=== PATIENT | female | born 1985 | race Caucasian/White ===

== ENCOUNTER 2018-04-21 01:32 | Inpatient (IN) | payer MEDICAID ==
--- NOTE | 2018-04-21 07:55 | PCM.PNLD ---
<Kim Ernandez - Last Filed: 04/21/18 07:53> Labor Progress Note - VS & Meds Vital Signs: Last Vital Signs Temp Pulse 95 04/21/18 05:56 Resp 18 04/21/18 05:56 BP 122/81 04/21/18 05:56 Pulse Ox - Uterine Contractions Uterine Monitoring Mode: External [place] Contraction Frequency (min): 3-6 Contraction Duration (sec): 60-120 Contraction Intensity: Moderate Uterine Resting Tone: Soft - Monitoring Strip Review: Category I - Vaginal Exam Dilation (cm): 2 Effacement (Percent): 50 Station: -2 Cervical Position: Midposition Sterile Vaginal Exam Performed By: Mera Conner - Labor Progress (Free Text) Labor Progress: Patient is doing well. Not feeling much for contractions at this time. She was AROMd without difficulty and cervical exam is now 3/80/-2 with clear fluid. There was some bleeding noted. Patient can receive epidural if desired. <Yinka Norton - Last Filed: 04/21/18 09:48> Labor Progress Note - VS & Meds Vital Signs: Last Vital Signs Temp Pulse 77 04/21/18 08:00 Resp 15 04/21/18 08:00 BP 111/75 04/21/18 08:00 Pulse Ox 99 04/21/18 08:00 Active Medications: Current Medications Lactated Ringer's (Ringers, Lactated) 1,000 mls @ 100 mls/hr IV ASDIRECTED BENITO - Labor Progress (Free Text) Labor Progress: Saw the patient with the resident and agree.
[2018-04-21] MEDS: Lactated Ringers 1,000 ML IV SCH ×2 (08:00→14:05)
--- NOTE | 2018-04-21 09:41 | PCM.LDHP ---
<Kim Ernandez - Last Filed: 04/21/18 14:18> L&D History of Present Illness - General Date of Service: 04/21/18 Admit Problem/Dx: Patient Status Order with Admit Dx/Problem 04/21/18 07:30 Patient Status [ADT] Routine Admission Diagnosis/Problem Admission Diagnosis/Problem and not yet delivered 04/21/18 09:28 Helen is a 33 yo F at 38w 6 d who presents to the hospital today for labor. The patient reports she had onset of contractions this AM and they have been becoming significantly stronger. She denies any vaginal bleeding or leakage of fluids. The patient has had a routine with no complications. Her previous deliveries were vaginal deliveries with no complications as well. Normal 28 w labs and she is GBS negative. She does not have any medical history. 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 ARTISAN History: Reports: , Other (See Below) Other OB/BYN History: bartholumu cyst removed has 3 children Musculoskeletal History: Reports: Fracture Neurological History: Reports: Migraines, Other (See Below) Other Neuro History: c/o dizziness with this has hx of migraines when not Endocrine/Metabolic History: Reports: Hypothyroidism Hematologic History: Reports: Anemia, Other (See Below) Other Hematologic History: anemia during is taking iron - Infectious Disease History Infectious Disease History: Reports: Chicken Pox - Past Surgical History Endocrine Surgical History: Reports: None Social & Family History - Family History Family Medical History: Noncontributory HEENT: Reports: None Cardiac: Reports: None GI: Reports: None : Reports: None OBGYN: Reports: None Musculoskeletal: Reports: None Neurological: Reports: None Endocrine/Metabolic: Reports: None Hematologic: Reports: None - Tobacco Use Smoking Status *Q: Never Smoker Second Hand Smoke Exposure: No - Caffeine Use Caffeine Use: Reports: Coffee - Recreational Drug Use Recreational Drug Use: No H&P Review of Systems - Review of Systems: General: Reports: No Symptoms HEENT: Reports: No Symptoms Pulmonary: Reports: No Symptoms Cardiovascular: Reports: No Symptoms Gastrointestinal: Reports: No Symptoms Genitourinary: Reports: No Symptoms Musculoskeletal: Reports: No Symptoms Skin: Reports: No Symptoms Psychiatric: Reports: No Symptoms L&D Exam - Exam Exam: See Below - Vital Signs Vital Signs: Last Vital Signs Temp Pulse 95 04/21/18 05:56 Resp 18 04/21/18 05:56 BP 122/81 04/21/18 05:56 Pulse Ox Weight: 182 lb - OB Specific Contraction Duration (sec): 60-120 Contraction Frequency (min): 3-6 Contraction Intensity: Moderate - Steiner Score Steiner Score Cervix Position: Midposition Steiner Score Consistency: Soft Steiner Score Dilation: 1-2 cm Steiner Score 's Station: -2 - Exam General: Alert Lungs: Clear to Auscultation, Normal Respiratory Effort Cardiovascular: Regular Rate, Regular Rhythm GI/Abdominal Exam: Normal Bowel Sounds, Soft, Non-Tender Genitourinary: Normal external exam Back Exam: Normal Inspection, CVA Tenderness (L) Extremities: Normal Inspection Skin: Warm Neurological: Cranial Nerves Intact - Problem List (1) Vaginal delivery SNOMED Code(s): 835751760 ICD Code: O80 - ENCOUNTER FOR FULL-TERM UNCOMPLICATED DELIVERY Status: Acute Current Visit: Yes (2) Intrauterine SNOMED Code(s): 26026313 ICD Code: Z33.1 - STATE, INCIDENTAL Status: Acute Current Visit : No Problem List Initiated/Reviewed/Updated: Yes Orders Last 24hrs: Active Orders 24 hr Category Date Time Status Patient Status [ADT] Routine ADT 04/21/18 07:30 Active Lactated Ringers [Ringers, Lactated] 1,000 ml Med 04/21/18 08:00 Active IV ASDIRECTED Resuscitation Status Routine Resus Stat 04/21/18 01:43 Ordered Medication Orders Lactated Ringer's (Ringers, Lactated) 1,000 mls @ 100 mls/hr IV ASDIRECTED BENITO Assessment/Plan Comment:: Continue routine L/D cares. Epidural if the patient desires. Expect normal spontaneous vaginal delivery. <[place],Yinka - Last Filed: 04/22/18 08:45> L&D History of Present Illness - General Admit Problem/Dx: Patient Status Order with Admit Dx/Problem 04/21/18 07:30 Patient Status [ADT] Routine 04/21/18 16:40 Patient Status [ADT] Routine Admission Diagnosis/Problem Admission Diagnosis/Problem Vaginal delivery H&P Review of Systems - Review of Systems: Review Of Systems: See Below L&D Exam - Exam Exam: See Below - Vital Signs Vital Signs: Last Vital Signs Temp 98.3 F 04/21/18 18:15 Pulse 84 04/21/18 21:19 Resp 15 04/21/18 18:15 BP 128/80 04/21/18 21:19 Pulse Ox 100 04/21/18 18:15 - Patient Data Lab Results Last 24 hrs: Laboratory Results - last 24 hr 04/22/18 Range/Units 05:50 WBC 8.1 (4.5-12.0) X10-3/uL RBC 3.29 (3.23-5.20) x10(6)uL Hgb 8.6 L (11.5-15.5) g/dL Hct 26.9 L (30.0-51.3) % MCV 81.5 (80-96) fL MCH 26.2 L (27.7-33.6) pg MCHC 32.1 L (32.2-35.4) g/dL RDW 13.9 (11.5-15.5) % Plt Count 131 (125-369) X10(3)uL MPV 9.2 (7.4-10.4) fL Neut % (Auto) 73.4 (46-82) % Lymph % (Auto) 18.6 (13-37) % [place] % (Auto) 7.0 (4-12) % Eos % (Auto) 1 (1.0-5.0) % Baso % (Auto) 1 (0-2) % Neut # (Auto) 6.0 (1.6-8.3) # Lymph # (Auto) 1.5 (0.6-5.0) # [place] # (Auto) 0.6 (0.0-1.3) # Eos # (Auto) 0.0 (0.0-0.8) # Baso # (Auto) 0.0 (0.0-0.2) # Result Diagrams: 04/22/18 05:50 Problem List Initiated/Reviewed/Updated: Yes Orders Last 24hrs: Active Orders 24 hr Category Date Time Status Patient Status [ADT] Routine ADT 04/21/18 16:40 Active Communication Order [RC] ASDIRECTED Care 04/21/18 12:37 Active Communication Order [RC] ASDIRECTED Care 04/21/18 14:38 Active Communication Order [RC] ASDIRECTED Care 04/21/18 14:38 Active Communication Order [RC] ASDIRECTED Care 04/21/18 14:38 Active Insert Urinary Catheter [OM.PC] Q24H Care 04/21/18 15:00 Ordered May Shower [RC] ASDIRECTED Care 04/21/18 16:42 Active Notify Provider [RC] PRN Care 04/21/18 12:37 Active Oxygen Therapy [RC] PRN Care 04/21/18 14:38 Active Pasero Opioid Induced Sedation [RC] Q1HR Care 04/21/18 14:38 Active Up ad Eugenie [RC] ASDIRECTED Care 04/21/18 16:42 Active Vital Signs [RC] PFP Care 04/21/18 16:40 Active Vital Signs [RC] PFP Care 04/21/18 16:42 Active Regular Diet [DIET] Diet 04/21/18 Dinner Active Docusate Sodium [Colace] Med 04/21/18 16:42 Active 100 mg PO BID PRN Famotidine [Pepcid] Med 04/21/18 16:42 Active 20 mg PO BID PRN Ibuprofen [Motrin] Med 04/21/18 16:42 Active 600 mg PO Q6H PRN Lactated Ringers [Ringers, Lactated] 1,000 ml Med 04/21/18 08:00 Active IV ASDIRECTED Nalbuphine [Nubain] Med 04/21/18 14:37 Active 10 mg IVPUSH Q1H PRN Naloxone [Narcan] Med 04/21/18 14:37 Active 0.1 mg IVPUSH ONETIME PRN Ondansetron [Zofran ODT] Med 04/21/18 17:15 Active 4 mg PO Q6H PRN Ondansetron [Zofran] Med 04/21/18 14:37 Active 4 mg IVPUSH Q6H PRN Oxytocin/Normal Saline [Pitocin in NS 20 Units/1,000 ML Med 04/21/18 12:45 Active ] 20 unit in 1,000 ml IV TITRATE Vit/FA/Fe Fumarate [-U] Med 04/22/18 09:00 Active 1 each PO DAILY diphenhydrAMINE [Benadryl] Med 04/21/18 14:37 Active 25 mg IVPUSH ONETIME PRN Assess Lochia [WOMSER] Per Unit Routine Ot 04/21/18 16:42 Ordered Assess Uterine Involution [WOMSER] Per Unit Routine Ot 04/21/18 16:42 Ordered Breast Pump [WOMSER] Per Unit Routine Ot 04/21/18 16:42 Ordered Do Not Administer Anticoagulant Meds [AST] Per Unit Ot 04/21/18 14:38 Ordered Routine Do Not Administer IV Narcs or Sedatives [AST] Per Unit Ot 04/21/18 14:38 Ordered Routine Ice Therapy [OM.PC] Per Unit Routine Ot 04/21/18 16:42 Ordered Perineal Care [OM.PC] Per Unit Routine Oth 04/21/18 16:42 Ordered Sitz Bath [OM.PC] Per Unit Routine Ot 04/21/18 16:42 Ordered Medication Orders Diphenhydramine HCl (Benadryl) 25 mg IVPUSH ONETIME PRN PRN Reason: Pruritus Docusate Sodium (Colace) 100 mg PO BID PRN PRN Reason: Constipation Famotidine (Pepcid) 20 mg PO BID PRN PRN Reason: Heartburn Lactated Ringer's (Ringers, Lactated) 1,000 mls @ 100 mls/hr IV ASDIRECTED BENITO Last Infusion: 04/21/18 13:35 Dose: 999 mls/hr Admin: 04/21/18 08:00 Dose: 100 mls/hr Oxytocin/Sodium Chloride (Pitocin In Ns 20 Units/1,000 Ml) 20 unit in 1,000 mls @ 6 mls/hr IV TITRATE BENITO; Protocol Last Titration: 04/21/18 13:30 Dose: 0 munits/min, 0 mls/hr Admin: 04/21/18 12:57 Dose: 2 munits/min, 6 mls/hr Ibuprofen (Motrin) 600 mg PO Q6H PRN PRN Reason: Pain Last Admin: 04/22/18 05:59 Dose: 600 mg Admin: 04/21/18 21:17 Dose: 600 mg Nalbuphine HCl (Nubain) 10 mg IVPUSH Q1H PRN PRN Reason: Pruritus Naloxone HCl (Narcan) 0.1 mg IVPUSH ONETIME PRN PRN Reason: Oversedation Ondansetron HCl (Zofran) 4 mg IVPUSH Q6H PRN PRN Reason: Nausea/Vomiting Ondansetron HCl (Zofran Odt) 4 mg PO Q6H PRN PRN Reason: Nausea/Vomiting Last Admin: 04/21/18 17:28 Dose: 4 mg Multivit/Folic Acid/Iron (-U) 1 each PO DAILY BENITO Assessment/Plan Comment:: I have seen this patient with the resident.
--- NOTE | 2018-04-21 12:40 | PCM.PNLD ---
<JayyjacquiKim orourke - Last Filed: 04/21/18 12:38> Labor Progress Note - VS & Meds Vital Signs: Last Vital Signs Temp Pulse 77 04/21/18 08:00 Resp 15 04/21/18 08:00 BP 111/75 04/21/18 08:00 Pulse Ox 99 04/21/18 08:00 Active Medications: Current Medications Lactated Ringer's (Ringers, Lactated) 1,000 mls @ 100 mls/hr IV ASDIRECTED BENITO - Uterine Contractions Uterine Monitoring Mode: External [place] Contraction Frequency (min): 3-4 Contraction Duration (sec): 60-120 Contraction Intensity: Moderate Uterine Resting Tone: Soft - Monitoring Strip Review: Category I - Vaginal Exam Dilation (cm): 5 Effacement (Percent): 80 Station: -1 Cervical Position: Posterior Sterile Vaginal Exam Performed By: Massiel Almanza - Labor Progress (Free Text) Labor Progress: Patient is becoming a little more uncomfortable. She would like to have intrathecal for pain control. Cervix is 5/90/-1. She is junior every 3 minutes but we discussed starting the patient on pitocin and she is agreeable. Category 1 strip. <AllenMayaYinka - Last Filed: 04/22/18 08:49> Labor Progress Note - VS & Meds Vital Signs: Last Vital Signs Temp 98.3 F 04/21/18 18:15 Pulse 84 04/21/18 21:19 Resp 15 04/21/18 18:15 BP 128/80 04/21/18 21:19 Pulse Ox 100 04/21/18 18:15 Active Medications: Current Medications Diphenhydramine HCl (Benadryl) 25 mg IVPUSH ONETIME PRN PRN Reason: Pruritus Docusate Sodium (Colace) 100 mg PO BID PRN PRN Reason: Constipation Famotidine (Pepcid) 20 mg PO BID PRN PRN Reason: Heartburn Lactated Ringer's (Ringers, Lactated) 1,000 mls @ 100 mls/hr IV ASDIRECTED BENITO Last Infusion: 04/21/18 13:35 Dose: 999 mls/hr Oxytocin/Sodium Chloride (Pitocin In Ns 20 Units/1,000 Ml) 20 unit in 1,000 mls @ 6 mls/hr IV TITRATE BENITO; Protocol Last Titration: 04/21/18 13:30 Dose: 0 munits/min, 0 mls/hr Ibuprofen (Motrin) 600 mg PO Q6H PRN PRN Reason: Pain Last Admin: 04/22/18 05:59 Dose: 600 mg Nalbuphine HCl (Nubain) 10 mg IVPUSH Q1H PRN PRN Reason: Pruritus Naloxone HCl (Narcan) 0.1 mg IVPUSH ONETIME PRN PRN Reason: Oversedation Ondansetron HCl (Zofran) 4 mg IVPUSH Q6H PRN PRN Reason: Nausea/Vomiting Ondansetron HCl (Zofran Odt) 4 mg PO Q6H PRN PRN Reason: Nausea/Vomiting Last Admin: 04/21/18 17:28 Dose: 4 mg Multivit/Folic Acid/Iron (-U) 1 each PO DAILY BENITO Discontinued Medications Hydroxyzine HCl (Vistaril) Confirm Administered Dose 50 mg .ROUTE .STK-MED ONE Stop: 04/21/18 18:00 Last Admin: 04/21/18 18:17 Dose: Not Given Hydroxyzine HCl (Vistaril) 50 mg IM ONETIME ONE Stop: 04/21/18 17:56 Last Admin: 04/21/18 18:03 Dose: 50 mg Naltrexone HCl (Naltrexone) 25 mg PO ONETIME ONE Stop: 04/21/18 17:36 Last Admin: 04/21/18 18:00 Dose: 25 mg Ondansetron HCl (Zofran Odt) Confirm Administered Dose 4 mg .ROUTE .STK-MED ONE Stop: 04/21/18 17:28 Last Admin: 04/21/18 17:54 Dose: Not Given Oxytocin (Pitocin) 10 unit IM ONETIME ONE Stop: 04/21/18 16:01 Last Admin: 04/21/18 16:08 Dose: 10 unit - Labor Progress (Free Text) Labor Progress: I have seen this patient with the resident and agree.
[2018-04-21] MEDS ORDERED: fentaNYL 100 MCG/2 ML SDV IV ONE (14:00)
[2018-04-21] MEDS ORDERED: Morphine PF 10 MG/10 ML SDV ONE (14:00)
--- NOTE | 2018-04-21 14:18 | PCM.PNLD ---
<OmaKim - Last Filed: 04/21/18 14:13> Labor Progress Note - VS & Meds Vital Signs: Last Vital Signs Temp Pulse 77 04/21/18 08:00 Resp 15 04/21/18 08:00 BP 111/75 04/21/18 08:00 Pulse Ox 99 04/21/18 08:00 Active Medications: Current Medications Lactated Ringer's (Ringers, Lactated) 1,000 mls @ 100 mls/hr IV ASDIRECTED BENITO Last Infusion: 04/21/18 13:35 Dose: 999 mls/hr Oxytocin/Sodium Chloride (Pitocin In Ns 20 Units/1,000 Ml) 20 unit in 1,000 mls @ 6 mls/hr IV TITRATE BENITO; Protocol Last Titration: 04/21/18 13:30 Dose: 0 munits/min, 0 mls/hr - Uterine Contractions Uterine Monitoring Mode: External [place] Contraction Frequency (min): 3-4 Contraction Duration (sec): 60-120 Contraction Intensity: Moderate Uterine Resting Tone: Soft - Monitoring Strip Review: Category I - Vaginal Exam Dilation (cm): 5 Effacement (Percent): 80 Station: -1 Cervical Position: Anterior Sterile Vaginal Exam Performed By: Massiel Almanza - Labor Progress (Free Text) Labor Progress: Category 1. Her pain is well controlled with intrathecal. Cervix is 8/100/-1. Expecting normal spontaneous vaginal delivery. <Yinka Norton - Last Filed: 04/22/18 08:49> Labor Progress Note - VS & Meds Vital Signs: Last Vital Signs Temp 98.3 F 04/21/18 18:15 Pulse 84 04/21/18 21:19 Resp 15 04/21/18 18:15 BP 128/80 04/21/18 21:19 Pulse Ox 100 04/21/18 18:15 Active Medications: Current Medications Diphenhydramine HCl (Benadryl) 25 mg IVPUSH ONETIME PRN PRN Reason: Pruritus Docusate Sodium (Colace) 100 mg PO BID PRN PRN Reason: Constipation Famotidine (Pepcid) 20 mg PO BID PRN PRN Reason: Heartburn Lactated Ringer's (Ringers, Lactated) 1,000 mls @ 100 mls/hr IV ASDIRECTED BENITO Last Infusion: 04/21/18 13:35 Dose: 999 mls/hr Oxytocin/Sodium Chloride (Pitocin In Ns 20 Units/1,000 Ml) 20 unit in 1,000 mls @ 6 mls/hr IV TITRATE BENITO; Protocol Last Titration: 04/21/18 13:30 Dose: 0 munits/min, 0 mls/hr Ibuprofen (Motrin) 600 mg PO Q6H PRN PRN Reason: Pain Last Admin: 04/22/18 05:59 Dose: 600 mg Nalbuphine HCl (Nubain) 10 mg IVPUSH Q1H PRN PRN Reason: Pruritus Naloxone HCl (Narcan) 0.1 mg IVPUSH ONETIME PRN PRN Reason: Oversedation Ondansetron HCl (Zofran) 4 mg IVPUSH Q6H PRN PRN Reason: Nausea/Vomiting Ondansetron HCl (Zofran Odt) 4 mg PO Q6H PRN PRN Reason: Nausea/Vomiting Last Admin: 04/21/18 17:28 Dose: 4 mg Multivit/Folic Acid/Iron (-U) 1 each PO DAILY BENITO Discontinued Medications Hydroxyzine HCl (Vistaril) Confirm Administered Dose 50 mg .ROUTE .STK-MED ONE Stop: 04/21/18 18:00 Last Admin: 04/21/18 18:17 Dose: Not Given Hydroxyzine HCl (Vistaril) 50 mg IM ONETIME ONE Stop: 04/21/18 17:56 Last Admin: 04/21/18 18:03 Dose: 50 mg Naltrexone HCl (Naltrexone) 25 mg PO ONETIME ONE Stop: 04/21/18 17:36 Last Admin: 04/21/18 18:00 Dose: 25 mg Ondansetron HCl (Zofran Odt) Confirm Administered Dose 4 mg .ROUTE .STK-MED ONE Stop: 04/21/18 17:28 Last Admin: 04/21/18 17:54 Dose: Not Given Oxytocin (Pitocin) 10 unit IM ONETIME ONE Stop: 04/21/18 16:01 Last Admin: 04/21/18 16:08 Dose: 10 unit - Labor Progress (Free Text) Labor Progress: I've seen this patient with the resident and agree.
[2018-04-21] MEDS ORDERED: Ondansetron 4 MG/2 ML SDV IVPUSH PRN (14:37)
[2018-04-21] MEDS ORDERED: Nalbuphine 10 MG/1 ML Vial IVPUSH PRN (14:37)
[2018-04-21] MEDS ORDERED: diphenhydrAMINE 50 MG/ML SDV IVPUSH PRN (14:37)
[2018-04-21] MEDS ORDERED: Naloxone 0.4 MG/ML SDV IVPUSH PRN (14:37)
[2018-04-21] MEDS ORDERED: Oxytocin 10 Units/1 ML SDV IM ONE (16:00)
--- NOTE | 2018-04-21 16:38 | PCM.DEL ---
<Kim Ernandez - Last Filed: 04/21/18 16:33> L & D Note - General Info Date of Service: 04/21/18 - Delivery Note Labor: Spontaneous Delivery Outcome: Livebirth Delivery Method: Spontaneous Vaginal Delivery-Single Delivery Mode: Spontaneous Presentation: Left Occiput Posterior (LOP) Anesthesia Type: Intrathecal Anesthetic: Lidocaine (Xylocaine) 1% Plain Local Anesthetic Volume: 5cc Amniotic Fluid Description: Clear Episiotomy Type: None Laceration: 2nd Degree, Vaginal Suture size: 4-0 Placenta: Intact, Spontaneous Cord: 3 Vessels Estimated Blood Loss: 500 Resuscitation Needed: No [place]: Suctioned, Bulb Syringe Score 1 min: 8 Score 5 min: 9 Delivery Comments (Free Text/Narrative):: Normal spontaneous vaginal delivery at 38 w 6 day. Baby position was left occiput posterior. Spontaneous delivery of intact placenta. 2nd degree midline vaginal tear was repaired in the usual fashion with local anesthetic and no complications. Estimated blood loss was 500mL. Rectum intact. - General Info Date of Service: 04/21/18 Admission Dx/Problem (Free Text): Patient Status Order with Admit Dx/Problem 04/21/18 07:30 Patient Status [ADT] Routine Admission Diagnosis/Problem Admission Diagnosis/Problem and not yet delivered 04/21/18 09:28 Helen is a 33 yo F at 38w 6 d who presents to the hospital today for labor. The patient reports she had onset of contractions this AM and they have been becoming significantly stronger. She denies any vaginal bleeding or leakage of fluids. The patient has had a routine with no complications. Her previous deliveries were vaginal deliveries with no complications as well. Normal 28 w labs and she is GBS negative. She does not have any medical history. 04/21/18 14:18 Functional Status: Reports: Pain Controlled - Patient Data Vitals - Most Recent: Last Vital Signs Temp Pulse 77 04/21/18 08:00 Resp 15 04/21/18 08:00 BP 111/75 04/21/18 08:00 Pulse Ox 99 04/21/18 08:00 Weight - Most Recent: 182 lb I&O - Last 24 Hours: Intake & Output 04/21/18 04/21/18 04/21/18 06:59 14:59 22:59 Intake Total 300 Output Total 200 Balance 100 Med Orders - Current: Current Medications Diphenhydramine HCl (Benadryl) 25 mg IVPUSH ONETIME PRN PRN Reason: Pruritus Lactated Ringer's (Ringers, Lactated) 1,000 mls @ 100 mls/hr IV ASDIRECTED BENITO Last Infusion: 04/21/18 13:35 Dose: 999 mls/hr Oxytocin/Sodium Chloride (Pitocin In Ns 20 Units/1,000 Ml) 20 unit in 1,000 mls @ 6 mls/hr IV TITRATE BENITO; Protocol Last Titration: 04/21/18 13:30 Dose: 0 munits/min, 0 mls/hr Nalbuphine HCl (Nubain) 10 mg IVPUSH Q1H PRN PRN Reason: Pruritus Naloxone HCl (Narcan) 0.1 mg IVPUSH ONETIME PRN PRN Reason: Oversedation Ondansetron HCl (Zofran) 4 mg IVPUSH Q6H PRN PRN Reason: Nausea/Vomiting - Problem List & Annotations (2) Vaginal delivery SNOMED Code(s): 659262975 Code(s): O80 - ENCOUNTER FOR FULL-TERM UNCOMPLICATED DELIVERY Status: Acute Current Visit: Yes (4) Intrauterine SNOMED Code(s): 75549650 Code(s): Z33.1 - STATE, INCIDENTAL Status: Acute Current Visit: No - Problem List Review Problem List Initiated/Reviewed/Updated: Yes - Plan Plan:: Routine post cares. Patient will have pain control with Ibuprofen every 6 hours with Tylenol for breakthrough pain. Up and ad oni. Patient is planning to breastfeed. Ice for bottom. <Yinka Norton - Last Filed: 04/22/18 08:50> - Patient Data Vitals - Most Recent: Last Vital Signs Temp 98.3 F 04/21/18 18:15 Pulse 84 04/21/18 21:19 Resp 15 04/21/18 18:15 BP 128/80 04/21/18 21:19 Pulse Ox 100 04/21/18 18:15 I&O - Last 24 Hours: Intake & Output 04/21/18 04/22/18 04/22/18 22:59 06:59 14:59 Output Total 700 Balance -700 Lab Results Last 24 Hours: Laboratory Results - last 24 hr 02/05/19 Range/Units 05:50 WBC 8.1 (4.5-12.0) X10-3/uL RBC 3.29 (3.23-5.20) x10(6)uL Hgb 8.6 L (11.5-15.5) g/dL Hct 26.9 L (30.0-51.3) % MCV 81.5 (80-96) fL MCH 26.2 L (27.7-33.6) pg MCHC 32.1 L (32.2-35.4) g/dL RDW 13.9 (11.5-15.5) % Plt Count 131 (125-369) X10(3)uL MPV 9.2 (7.4-10.4) fL Neut % (Auto) 73.4 (46-82) % Lymph % (Auto) 18.6 (13-37) % [place] % (Auto) 7.0 (4-12) % Eos % (Auto) 1 (1.0-5.0) % Baso % (Auto) 1 (0-2) % Neut # (Auto) 6.0 (1.6-8.3) # Lymph # (Auto) 1.5 (0.6-5.0) # [place] # (Auto) 0.6 (0.0-1.3) # Eos # (Auto) 0.0 (0.0-0.8) # Baso # (Auto) 0.0 (0.0-0.2) # Med Orders - Current: Current Medications Diphenhydramine HCl (Benadryl) 25 mg IVPUSH ONETIME PRN PRN Reason: Pruritus Docusate Sodium (Colace) 100 mg PO BID PRN PRN Reason: Constipation Famotidine (Pepcid) 20 mg PO BID PRN PRN Reason: Heartburn Lactated Ringer's (Ringers, Lactated) 1,000 mls @ 100 mls/hr IV ASDIRECTED BENITO Last Infusion: 04/21/18 13:35 Dose: 999 mls/hr Oxytocin/Sodium Chloride (Pitocin In Ns 20 Units/1,000 Ml) 20 unit in 1,000 mls @ 6 mls/hr IV TITRATE BENITO; Protocol Last Titration: 04/21/18 13:30 Dose: 0 munits/min, 0 mls/hr Ibuprofen (Motrin) 600 mg PO Q6H PRN PRN Reason: Pain Last Admin: 04/22/18 05:59 Dose: 600 mg Nalbuphine HCl (Nubain) 10 mg IVPUSH Q1H PRN PRN Reason: Pruritus Naloxone HCl (Narcan) 0.1 mg IVPUSH ONETIME PRN PRN Reason: Oversedation Ondansetron HCl (Zofran) 4 mg IVPUSH Q6H PRN PRN Reason: Nausea/Vomiting Ondansetron HCl (Zofran Odt) 4 mg PO Q6H PRN PRN Reason: Nausea/Vomiting Last Admin: 04/21/18 17:28 Dose: 4 mg Multivit/Folic Acid/Iron (-U) 1 each PO DAILY BENITO Discontinued Medications Hydroxyzine HCl (Vistaril) Confirm Administered Dose 50 mg .ROUTE .STK-MED ONE Stop: 04/21/18 18:00 Last Admin: 04/21/18 18:17 Dose: Not Given Hydroxyzine HCl (Vistaril) 50 mg IM ONETIME ONE Stop: 04/21/18 17:56 Last Admin: 04/21/18 18:03 Dose: 50 mg Naltrexone HCl (Naltrexone) 25 mg PO ONETIME ONE Stop: 04/21/18 17:36 Last Admin: 04/21/18 18:00 Dose: 25 mg Ondansetron HCl (Zofran Odt) Confirm Administered Dose 4 mg .ROUTE .STK-MED ONE Stop: 04/21/18 17:28 Last Admin: 04/21/18 17:54 Dose: Not Given Oxytocin (Pitocin) 10 unit IM ONETIME ONE Stop: 04/21/18 16:01 Last Admin: 04/21/18 16:08 Dose: 10 unit - Problem List & Annotations (1) Vaginal delivery SNOMED Code(s): 999139160 Code(s): O80 - ENCOUNTER FOR FULL-TERM UNCOMPLICATED DELIVERY Status: Acute Current Visit: Yes - Problem List Review Problem List Initiated/Reviewed/Updated: Yes - My Orders Last 24 Hours: My Active Orders 04/21/18 08:00 Lactated Ringers [Ringers, Lactated] 1,000 ml IV ASDIRECTED 04/21/18 12:37 Communication Order [RC] ASDIRECTED Notify Provider [RC] PRN 04/21/18 12:45 Oxytocin/Normal Saline [Pitocin in NS 20 Units/1,000 ML] 20 unit in 1,000 ml IV TITRATE 04/21/18 15:00 Insert Urinary Catheter [OM.PC] Q24H 04/21/18 17:15 Ondansetron [Zofran ODT] 4 mg PO Q6H PRN - Plan Plan:: I have seen this patient with the resident and agree.
[2018-04-21] MEDS ORDERED: Famotidine 20 MG Tab PO PRN (16:42)
[2018-04-21] MEDS ORDERED: Docusate Sodium 100 MG Cap PO PRN (16:42)
[2018-04-21] MEDS ORDERED: Ondansetron 4 MG Tab.DIS PO PRN (17:15)
[2018-04-21] MEDS ORDERED: Ondansetron 4 MG Tab.DIS ONE (17:27)
[2018-04-21] MEDS ORDERED: Naltrexone 50 MG Tab PO ONE (17:35)
[2018-04-21] MEDS ORDERED: hydrOXYzine HCl 50 MG/ML SDV IM ONE (17:55)
[2018-04-21] MEDS ORDERED: hydrOXYzine HCl 50 MG/ML SDV ONE (17:59)
[2018-04-21] MEDS: Ibuprofen 600 MG Tab PO PRN (21:17)
[2018-04-22] MEDS: Ibuprofen 600 MG Tab PO PRN ×2 (05:59→18:55)
--- NOTE | 2018-04-22 07:59 | PCM.PNPP ---
<Kim Ernandez - Last Filed: 04/22/18 07:54> - General Info Date of Service: 04/22/18 Subjective Update: Patient reports doing well this morning. Her pain is controlled with ibuprofen. Bleeding is slowing down. She has been up and out of bed without difficulty. She was having some dizziness last night but this has resolved this AM. Bonding with baby very well. No symptoms of depression or anxiety. Functional Status: Reports: Pain Controlled - Review of Systems General: Reports: No Symptoms HEENT: Reports: No Symptoms Pulmonary: Reports: No Symptoms Cardiovascular: Reports: No Symptoms Gastrointestinal: Reports: No Symptoms Genitourinary: Reports: No Symptoms Musculoskeletal: Reports: No Symptoms Skin: Reports: No Symptoms Neurological: Reports: No Symptoms Psychiatric: Reports: No Symptoms - Patient Data Vital Signs - Most Recent: Last Vital Signs Temp 36.8 C 04/21/18 18:15 Pulse 84 04/21/18 21:19 Resp 15 04/21/18 18:15 BP 128/80 04/21/18 21:19 Pulse Ox 100 04/21/18 18:15 Weight - Most Recent: 182 lb I&O - Last 24 Hours: Intake & Output 04/21/18 04/22/18 04/22/18 22:59 06:59 14:59 Output Total 700 Balance -700 Lab Results - Last 24 Hours: Laboratory Results - last 24 hr 04/22/18 Range/Units 05:50 WBC 8.1 (4.5-12.0) X10-3/uL RBC 3.29 (3.23-5.20) x10(6)uL Hgb 8.6 L (11.5-15.5) g/dL Hct 26.9 L (30.0-51.3) % MCV 81.5 (80-96) fL MCH 26.2 L (27.7-33.6) pg MCHC 32.1 L (32.2-35.4) g/dL RDW 13.9 (11.5-15.5) % Plt Count 131 (125-369) X10(3)uL MPV 9.2 (7.4-10.4) fL Neut % (Auto) 73.4 (46-82) % Lymph % (Auto) 18.6 (13-37) % Riley % (Auto) 7.0 (4-12) % Eos % (Auto) 1 (1.0-5.0) % Baso % (Auto) 1 (0-2) % Neut # (Auto) 6.0 (1.6-8.3) # Lymph # (Auto) 1.5 (0.6-5.0) # Riley # (Auto) 0.6 (0.0-1.3) # Eos # (Auto) 0.0 (0.0-0.8) # Baso # (Auto) 0.0 (0.0-0.2) # Med Orders - Current: Current Medications Diphenhydramine HCl (Benadryl) 25 mg IVPUSH ONETIME PRN PRN Reason: Pruritus Docusate Sodium (Colace) 100 mg PO BID PRN PRN Reason: Constipation Famotidine (Pepcid) 20 mg PO BID PRN PRN Reason: Heartburn Lactated Ringer's (Ringers, Lactated) 1,000 mls @ 100 mls/hr IV ASDIRECTED BENITO Last Infusion: 04/21/18 13:35 Dose: 999 mls/hr Oxytocin/Sodium Chloride (Pitocin In Ns 20 Units/1,000 Ml) 20 unit in 1,000 mls @ 6 mls/hr IV TITRATE [facility]ENITO; Protocol Last Titration: 04/21/18 13:30 Dose: 0 munits/min, 0 mls/hr Ibuprofen (Motrin) 600 mg PO Q6H PRN PRN Reason: Pain Last Admin: 04/22/18 05:59 Dose: 600 mg Nalbuphine HCl (Nubain) 10 mg IVPUSH Q1H PRN PRN Reason: Pruritus Naloxone HCl (Narcan) 0.1 mg IVPUSH ONETIME PRN PRN Reason: Oversedation Ondansetron HCl (Zofran) 4 mg IVPUSH Q6H PRN PRN Reason: Nausea/Vomiting Ondansetron HCl (Zofran Odt) 4 mg PO Q6H PRN PRN Reason: Nausea/Vomiting Last Admin: 04/21/18 17:28 Dose: 4 mg Multivit/Folic Acid/Iron (-U) 1 each PO DAILY [facility]ENITO Discontinued Medications Hydroxyzine HCl (Vistaril) Confirm Administered Dose 50 mg .ROUTE .STK-MED ONE Stop: 04/21/18 18:00 Last Admin: 04/21/18 18:17 Dose: Not Given Hydroxyzine HCl (Vistaril) 50 mg IM ONETIME ONE Stop: 04/21/18 17:56 Last Admin: 04/21/18 18:03 Dose: 50 mg Naltrexone HCl (Naltrexone) 25 mg PO ONETIME ONE Stop: 04/21/18 17:36 Last Admin: 04/21/18 18:00 Dose: 25 mg Ondansetron HCl (Zofran Odt) Confirm Administered Dose 4 mg .ROUTE .STK-MED ONE Stop: 04/21/18 17:28 Last Admin: 04/21/18 17:54 Dose: Not Given Oxytocin (Pitocin) 10 unit IM ONETIME ONE Stop: 04/21/18 16:01 Last Admin: 04/21/18 16:08 Dose: 10 unit - Infant Interaction Disposition, : at Bedside Interaction: Holding Infant Infant Feeding: Breastfed Infant; Nursed Well, Continues to Breastfeed Support Person: - Recovery Exam Fundal Tone: Firm Fundal Level: At Umbilicus Fundal Placement: Midline Lochia Amount: Moderate Lochia Color: Rubra/Red Perineum Description: Intact, Minimal Bruising/Swelling, Edematous, Hematoma Episiotomy/Laceration: Approximated Bladder Status: Voiding - Exam General: Alert, No Acute Distress HEENT: Pupils Equal Lungs: Clear to Auscultation, Normal Respiratory Effort Cardiovascular: Regular Rate, Regular Rhythm GI/Abdominal Exam: Normal Bowel Sounds, Soft, Non-Tender Extremities: Normal Inspection, Normal Range of Motion, No Pedal Edema Wound/Incisions: Healing Well - Problem List & Annotations (1) care and examination immediately after delivery SNOMED Code(s): 33623956, 848748996 Code(s): Z39.0 - ENCNTR FOR CARE AND EXAM OF MOTHER IMMEDIATELY AFTER DEL Status: Acute Current Visit: Yes (2) Vaginal delivery SNOMED Code(s): 725202530 Code(s): O80 - ENCOUNTER FOR FULL-TERM UNCOMPLICATED DELIVERY Status: Acute Current Visit: Yes (3) Iron deficiency anemia SNOMED Code(s): 56647262 Code(s): D50.9 - IRON DEFICIENCY ANEMIA, UNSPECIFIED Status: Acute Current Visit: Yes - Problem List Review Problem List Initiated/Reviewed/Updated: Yes - My Orders Last 24 Hours: My Active Orders 04/21/18 16:40 Patient Status [ADT] Routine Vital Signs [RC] PFP 04/21/18 16:42 May Shower [RC] ASDIRECTED Up ad Oni [RC] ASDIRECTED Vital Signs [RC] PFP Docusate Sodium [Colace] 100 mg PO BID PRN Famotidine [Pepcid] 20 mg PO BID PRN Ibuprofen [Motrin] 600 mg PO Q6H PRN Assess Lochia [WOMSER] Per Unit Routine Assess Uterine Involution [WOMSER] Per Unit Routine Breast Pump [WOMSER] Per Unit Routine Ice Therapy [OM.PC] Per Unit Routine Perineal Care [OM.PC] Per Unit Routine Sitz Bath [OM.PC] Per Unit Routine 04/21/18 Dinner Regular Diet [DIET] 04/22/18 09:00 Vit/FA/Fe Fumarate [-U] 1 each PO DAILY - Plan Plan:: Continue routine post cares. Patient will have pain control with Ibuprofen every 6 hours with Tylenol for breakthrough pain. Up and ad oni. is going well is latching and feeding for 20 min intervals every 3-4 hours. We will start her on iron supplementation today. <Yinka Norton - Last Filed: 04/22/18 08:52> - Patient Data Vital Signs - Most Recent: Last Vital Signs Temp 98.3 F 04/21/18 18:15 Pulse 84 04/21/18 21:19 Resp 15 04/21/18 18:15 BP 128/80 04/21/18 21:19 Pulse Ox 100 04/21/18 18:15 I&O - Last 24 Hours: Intake & Output 04/21/18 04/22/18 04/22/18 22:59 06:59 14:59 Output Total 700 Balance -700 Lab Results - Last 24 Hours: Laboratory Results - last 24 hr 04/22/18 Range/Units 05:50 WBC 8.1 (4.5-12.0) X10-3/uL RBC 3.29 (3.23-5.20) x10(6)uL Hgb 8.6 L (11.5-15.5) g/dL Hct 26.9 L (30.0-51.3) % MCV 81.5 (80-96) fL MCH 26.2 L (27.7-33.6) pg MCHC 32.1 L (32.2-35.4) g/dL RDW 13.9 (11.5-15.5) % Plt Count 131 (125-369) X10(3)uL MPV 9.2 (7.4-10.4) fL Neut % (Auto) 73.4 (46-82) % Lymph % (Auto) 18.6 (13-37) % Riley % (Auto) 7.0 (4-12) % Eos % (Auto) 1 (1.0-5.0) % Baso % (Auto) 1 (0-2) % Neut # (Auto) 6.0 (1.6-8.3) # Lymph # (Auto) 1.5 (0.6-5.0) # Riley # (Auto) 0.6 (0.0-1.3) # Eos # (Auto) 0.0 (0.0-0.8) # Baso # (Auto) 0.0 (0.0-0.2) # Med Orders - Current: Current Medications Diphenhydramine HCl (Benadryl) 25 mg IVPUSH ONETIME PRN PRN Reason: Pruritus Docusate Sodium (Colace) 100 mg PO BID PRN PRN Reason: Constipation Famotidine (Pepcid) 20 mg PO BID PRN PRN Reason: Heartburn Lactated Ringer's (Ringers, Lactated) 1,000 mls @ 100 mls/hr IV ASDIRECTED [facility]ENITO Last Infusion: 04/21/18 13:35 Dose: 999 mls/hr Oxytocin/Sodium Chloride (Pitocin In Ns 20 Units/1,000 Ml) 20 unit in 1,000 mls @ 6 mls/hr IV TITRATE BENITO; Protocol Last Titration: 04/21/18 13:30 Dose: 0 munits/min, 0 mls/hr Ibuprofen (Motrin) 600 mg PO Q6H PRN PRN Reason: Pain Last Admin: 04/22/18 05:59 Dose: 600 mg Nalbuphine HCl (Nubain) 10 mg IVPUSH Q1H PRN PRN Reason: Pruritus Naloxone HCl (Narcan) 0.1 mg IVPUSH ONETIME PRN PRN Reason: Oversedation Ondansetron HCl (Zofran) 4 mg IVPUSH Q6H PRN PRN Reason: Nausea/Vomiting Ondansetron HCl (Zofran Odt) 4 mg PO Q6H PRN PRN Reason: Nausea/Vomiting Last Admin: 04/21/18 17:28 Dose: 4 mg Multivit/Folic Acid/Iron (-U) 1 each PO DAILY BENITO Discontinued Medications Hydroxyzine HCl (Vistaril) Confirm Administered Dose 50 mg .ROUTE .STK-MED ONE Stop: 04/21/18 18:00 Last Admin: 04/21/18 18:17 Dose: Not Given Hydroxyzine HCl (Vistaril) 50 mg IM ONETIME ONE Stop: 04/21/18 17:56 Last Admin: 04/21/18 18:03 Dose: 50 mg Naltrexone HCl (Naltrexone) 25 mg PO ONETIME ONE Stop: 04/21/18 17:36 Last Admin: 04/21/18 18:00 Dose: 25 mg Ondansetron HCl (Zofran Odt) Confirm Administered Dose 4 mg .ROUTE .STK-MED ONE Stop: 04/21/18 17:28 Last Admin: 04/21/18 17:54 Dose: Not Given Oxytocin (Pitocin) 10 unit IM ONETIME ONE Stop: 04/21/18 16:01 Last Admin: 04/21/18 16:08 Dose: 10 unit - Problem List & Annotations (1) Vaginal delivery SNOMED Code(s): 708974241 Code(s): O80 - ENCOUNTER FOR FULL-TERM UNCOMPLICATED DELIVERY Status: Acute Current Visit: Yes - Problem List Review Problem List Initiated/Reviewed/Updated: Yes - My Orders Last 24 Hours: My Active Orders 04/21/18 08:00 Lactated Ringers [Ringers, Lactated] 1,000 ml IV ASDIRECTED 04/21/18 12:37 Communication Order [RC] ASDIRECTED Notify Provider [RC] PRN 04/21/18 12:45 Oxytocin/Normal Saline [Pitocin in NS 20 Units/1,000 ML] 20 unit in 1,000 ml IV TITRATE 04/21/18 15:00 Insert Urinary Catheter [OM.PC] Q24H 04/21/18 17:15 Ondansetron [Zofran ODT] 4 mg PO Q6H PRN - Plan Plan:: I've seen this patient with the resident and agree.
[2018-04-22] MEDS: Prenatal Multivitamin with Calcium/Folic Acid/Fe Fumarate Cap PO SCH (10:00)
[2018-04-22] MEDS ORDERED: Measles, Mumps & Rubella Vaccine 0.5 ML SDV SUBCUT ONE (20:03)
--- NOTE | 2018-04-23 07:14 | PCM.PNPP ---
- General Info Date of Service: 04/23/18 Admission Dx/Problem (Free Text): Patient without complaints. Pain is under control and occasionally uses ibuprofen. Vaginal bleeding is much improved no leg swelling. No fevers or chills. - Patient Data Vital Signs - Most Recent: Last Vital Signs Temp 98.1 F 04/22/18 09:00 Pulse 70 04/22/18 09:00 Resp 17 04/22/18 09:00 BP 109/61 04/22/18 09:00 Pulse Ox 100 04/22/18 09:00 Weight - Most Recent: 182 lb Med Orders - Current: Current Medications Diphenhydramine HCl (Benadryl) 25 mg IVPUSH ONETIME PRN PRN Reason: Pruritus Docusate Sodium (Colace) 100 mg PO BID PRN PRN Reason: Constipation Famotidine (Pepcid) 20 mg PO BID PRN PRN Reason: Heartburn Lactated Ringer's (Ringers, Lactated) 1,000 mls @ 100 mls/hr IV ASDIRECTED [facility] Last Infusion: 04/21/18 14:30 Dose: 150 mls/hr Oxytocin/Sodium Chloride (Pitocin In Ns 20 Units/1,000 Ml) 20 unit in 1,000 mls @ 6 mls/hr IV TITRATE BENITO; Protocol Last Titration: 04/21/18 13:30 Dose: 0 munits/min, 0 mls/hr Ibuprofen (Motrin) 600 mg PO Q6H PRN PRN Reason: Pain Last Admin: 04/22/18 18:55 Dose: 600 mg Nalbuphine HCl (Nubain) 10 mg IVPUSH Q1H PRN PRN Reason: Pruritus Naloxone HCl (Narcan) 0.1 mg IVPUSH ONETIME PRN PRN Reason: Oversedation Ondansetron HCl (Zofran) 4 mg IVPUSH Q6H PRN PRN Reason: Nausea/Vomiting Ondansetron HCl (Zofran Odt) 4 mg PO Q6H PRN PRN Reason: Nausea/Vomiting Last Admin: 04/21/18 17:28 Dose: 4 mg Multivit/Folic Acid/Iron (-U) 1 each PO DAILY BENITO Last Admin: 04/22/18 10:00 Dose: 1 each Discontinued Medications Hydroxyzine HCl (Vistaril) Confirm Administered Dose 50 mg .ROUTE .STK-MED ONE Stop: 04/21/18 18:00 Last Admin: 04/21/18 18:17 Dose: Not Given Hydroxyzine HCl (Vistaril) 50 mg IM ONETIME ONE Stop: 04/21/18 17:56 Last Admin: 04/21/18 18:03 Dose: 50 mg Measles/Mumps/Rubella Vaccine Live (M-M-R Ii Vaccine) 0.5 ml SUBCUT .ONCE ONE Stop: 04/22/18 20:04 Naltrexone HCl (Naltrexone) 25 mg PO ONETIME ONE Stop: 04/21/18 17:36 Last Admin: 04/21/18 18:00 Dose: 25 mg Ondansetron HCl (Zofran Odt) Confirm Administered Dose 4 mg .ROUTE .STK-MED ONE Stop: 04/21/18 17:28 Last Admin: 04/21/18 17:54 Dose: Not Given Oxytocin (Pitocin) 10 unit IM ONETIME ONE Stop: 04/21/18 16:01 Last Admin: 04/21/18 16:08 Dose: 10 unit - Infant Interaction Infant Disposition, : [place] at Bedside Interaction: Holding Infant Feeding: Breastfed Infant; Nursed Well, Continues to Breastfeed Support Person: - Recovery Exam Fundal Tone: Firm Fundal Level: At Umbilicus Fundal Placement: Midline Lochia Amount: Moderate Lochia Color: Rubra/Red Perineum Description: Intact, Minimal Bruising/Swelling, Edematous, Hematoma Episiotomy/Laceration: Approximated Bladder Status: Voiding - Exam General: Alert, Oriented, Cooperative Lungs: Normal Respiratory Effort GI/Abdominal Exam: Other (Fundus is firm) Extremities: No Pedal Edema - Problem List & Annotations (1) Vaginal delivery SNOMED Code(s): 907306974 Code(s): O80 - ENCOUNTER FOR FULL-TERM UNCOMPLICATED DELIVERY Status: Acute Current Visit: Yes - Problem List Review Problem List Initiated/Reviewed/Updated: Yes - My Orders Last 24 Hours: My Active Orders 04/22/18 20:04 Vaccines to be Administered [RC] 1000 - Plan Plan:: DC to home on vitamins and iron once a day. Recheck in 6 weeks for check.
--- NOTE | 2018-04-23 07:19 | PCM.DCSUM1 ---
Discharge Summary - Hospital Course Free Text/Narrative:: Hospital course-after the delivery patient was placed on ibuprofen and/or Tylenol 3 for pain. Day #2 her hemoglobin is low but over 8. She was 10 starting . Start iron once a day. Pain was controlled and bleeding slowed down. And she did quite well. We'll discharge her home on vitamins and iron. She hadn't no palpitations during her stay. Normal care. Brief History: 33-year-old at 39 weeks comes in in labor. She was AROM with clear fluids and she is group B negative. Delivered a healthy baby boy in OP position. See delivery note Diagnosis: Stroke: No - Discharge Data Discharge Date: 04/23/18 Discharge Disposition: Home, Self-Care 01 Condition: Good - Discharge Diagnosis/Problem(s) (1) Vaginal delivery SNOMED Code(s): 278033172 ICD Code: O80 - ENCOUNTER FOR FULL-TERM UNCOMPLICATED DELIVERY Status: Acute Current Visit: Yes (2) Iron deficiency anemia SNOMED Code(s): 50322460 ICD Code: D50.9 - IRON DEFICIENCY ANEMIA, UNSPECIFIED Status: Acute Current Visit: Yes - Patient Instructions Diet: Regular Diet as Tolerated Activity: Apply Ice Driving: May Drive Today Showering/Bathing: July Shower Notify Provider of: Fever, Increased Pain, Drainage Other/Special Instructions: 1. Recheck for check with Dr. Norton in 6 weeks. 2. Ibuprofen [id number] when necessary for pain. - Discharge Plan Prescriptions/Med Rec: Ferrous Sulfate [Iron] 325 mg PO DAILY #30 tablet Home Medications: Home Meds Levothyroxine Sodium [Synthroid] 25 mcg PO ACBRK 02/17/14 [History] PNV95/Ferrous Fumarate/FA [ Tablet] 1 each PO DAILY 02/17/14 [History] Ferrous Sulfate [Iron] 325 mg PO DAILY #30 tablet 04/23/18 [Rx] Patient Handouts: , Baby Blues, Home Care Instructions for Mom, Care After Vaginal Delivery, Hand Washing - Discharge Summary/Plan Comment DC Time >30 min.: No - Patient Data Vitals - Most Recent: Last Vital Signs Temp 98.1 F 04/22/18 09:00 Pulse 70 04/22/18 09:00 Resp 17 04/22/18 09:00 BP 109/61 04/22/18 09:00 Pulse Ox 100 04/22/18 09:00 Weight - Most Recent: 182 lb Med Orders - Current: Current Medications Diphenhydramine HCl (Benadryl) 25 mg IVPUSH ONETIME PRN PRN Reason: Pruritus Docusate Sodium (Colace) 100 mg PO BID PRN PRN Reason: Constipation Famotidine (Pepcid) 20 mg PO BID PRN PRN Reason: Heartburn Lactated Ringer's (Ringers, Lactated) 1,000 mls @ 100 mls/hr IV ASDIRECTED BENITO Last Infusion: 04/21/18 14:30 Dose: 150 mls/hr Oxytocin/Sodium Chloride (Pitocin In Ns 20 Units/1,000 Ml) 20 unit in 1,000 mls @ 6 mls/hr IV TITRATE BENITO; Protocol Last Titration: 04/21/18 13:30 Dose: 0 munits/min, 0 mls/hr Ibuprofen (Motrin) 600 mg PO Q6H PRN PRN Reason: Pain Last Admin: 04/22/18 18:55 Dose: 600 mg Nalbuphine HCl (Nubain) 10 mg IVPUSH Q1H PRN PRN Reason: Pruritus Naloxone HCl (Narcan) 0.1 mg IVPUSH ONETIME PRN PRN Reason: Oversedation Ondansetron HCl (Zofran) 4 mg IVPUSH Q6H PRN PRN Reason: Nausea/Vomiting Ondansetron HCl (Zofran Odt) 4 mg PO Q6H PRN PRN Reason: Nausea/Vomiting Last Admin: 04/21/18 17:28 Dose: 4 mg Multivit/Folic Acid/Iron (-U) 1 each PO DAILY [facility] Last Admin: 04/22/18 10:00 Dose: 1 each Discontinued Medications Hydroxyzine HCl (Vistaril) Confirm Administered Dose 50 mg .ROUTE .STK-MED ONE Stop: 04/21/18 18:00 Last Admin: 04/21/18 18:17 Dose: Not Given Hydroxyzine HCl (Vistaril) 50 mg IM ONETIME ONE Stop: 04/21/18 17:56 Last Admin: 04/21/18 18:03 Dose: 50 mg Measles/Mumps/Rubella Vaccine Live (M-M-R Ii Vaccine) 0.5 ml SUBCUT .ONCE ONE Stop: 04/22/18 20:04 Naltrexone HCl (Naltrexone) 25 mg PO ONETIME ONE Stop: 04/21/18 17:36 Last Admin: 04/21/18 18:00 Dose: 25 mg Ondansetron HCl (Zofran Odt) Confirm Administered Dose 4 mg .ROUTE .STK-MED ONE Stop: 04/21/18 17:28 Last Admin: 04/21/18 17:54 Dose: Not Given Oxytocin (Pitocin) 10 unit IM ONETIME ONE Stop: 04/21/18 16:01 Last Admin: 04/21/18 16:08 Dose: 10 unit
[2018-04-23] MEDS: Prenatal Multivitamin with Calcium/Folic Acid/Fe Fumarate Cap PO SCH (08:50)
[2018-04-23] MEDS: Ibuprofen 600 MG Tab PO PRN (08:52)
[2018-04-23 09:39] VITALS: BP 115/74
== END 2018-04-23 12:50 | disposition home or self-care (01) | DRG 807 ==
LOC: FB.OBCHECK 01:32 → FB.OB 01:34 → FB.OBCHECK 07:30 → FB.OB 07:30
PROVIDERS: ADMIT Family Medicine; ATTEND Family Medicine
PROC: 10E0XZZ Delivery of Products of Conception, External Approach (ICD-10-PCS; principal; 2018-04-21)
PROC: 10907ZC Drainage of Amniotic Fluid, Therapeutic from Products of Conception, Via Natural or Artificial Opening (ICD-10-PCS; 2018-04-21)
PROC: 0HQ9XZZ Repair Perineum Skin, External Approach (ICD-10-PCS; 2018-04-21)
PROC: 00HU33Z Insertion of Infusion Device into Spinal Canal, Percutaneous Approach (ICD-10-PCS; 2018-04-21)
PROC: 3E0234Z Introduction of Serum, Toxoid and Vaccine into Muscle, Percutaneous Approach (ICD-10-PCS; 2018-04-23)
DX: O71.4 Obstetric high vaginal laceration alone (principal); Z37.0 Single live birth; O99.284 Endocrine, nutritional and metabolic diseases complicating childbirth; E03.9 Hypothyroidism, unspecified; O99.02 Anemia complicating childbirth; Z3A.38 38 weeks gestation of pregnancy; D50.9 Iron deficiency anemia, unspecified; Z23 Encounter for immunization
CPT/HCPCS: 36415; 51701; 59409; 85025; 90471; 90707; 96361; 96374; 96375; 99285; A9270-GY; J2270; J2590; J3010; J3410; J7120

== ENCOUNTER 2023-02-21 17:32 | Emergency (ER) | payer MEDICAID ==
[2023-02-21] MEDS ORDERED: Sodium Chloride 0.9% 10 ML Syringe FLUSH PRN (17:54)
[2023-02-21] MEDS ORDERED: Ondansetron 4 MG/2 ML SDV IVPUSH ONE (18:14)
[2023-02-21] MEDS ORDERED: Sodium Chloride 0.9% 1,000 ML IV SCH (18:15)
[2023-02-21 18:36] LABS: BASOPHILS PERCENT AUTO 0.3 % (0.2-1.5); EOSINOPHILS ABSOLUTE AUTO 0.1 x10-3/uL (0.0-0.8); EOSINOPHILS PERCENT AUTO 1.3 % (0.6-8.1); HEMATOCRIT 29.8 % (34.2-48.2); HEMOGLOBIN 10.5 g/dL (11.4-15.5); LYMPHOCYTES ABSOLUTE AUTO 1.3 x10-3/uL (1.0-4.4); LYMPHOCYTES PERCENT AUTO 19.9 % (18.4-52.1); MEAN CORPUSCULAR HEMOGLOBIN 31.2 pg (23.9-33.9); MEAN CORPUSCULAR HGB CONC 35.4 g/dL (31.9-34.8); MEAN CORPUSCULAR VOLUME 88.2 fL (76.7-100.5); MEAN PLATELET VOLUME 8.4 fL (7.1-12.4); MONOCYTES ABSOLUTE AUTO 0.4 x10-3/uL (0.3-1.0); MONOCYTES PERCENT AUTO 6.4 % (4.4-15.7); NEUTROPHILS ABSOLUTE AUTO 4.8 x10-3/uL (1.5-6.3); NEUTROPHILS PERCENT AUTO 72.1 % (30.8-76.2); PLATELET COUNT,PLT 168 x10(3)uL (151-488); RED BLOOD CELL COUNT 3.38 x10(6)uL (3.60-5.20); RED CELL DISTRIBUTION WIDTH 12.8 % (12.3-16.5); WHITE BLOOD CELL COUNT,WBC 6.6 x10-3/uL (3.0-10.3)
[2023-02-21 18:39] LABS: BLOOD UREA NITROGEN,BUN 9 mg/dL (7-18); CARBON DIOXIDE,CO2 24 mmol/L (21-32); CHLORIDE,CL 103 mmol/L (100-110); CREATININE 0.6 mg/dL (0.55-1.02); EST CRCL DRUG DOSING (CG) 130.76 mL/min; ESTIMATED GFR 119 mL/min (>60); GLUCOSE RANDOM 79 mg/dL (80-116); POTASSIUM,K 3.4 mmol/L (3.5-5.3); SODIUM,NA 138 mmol/L (135-145)
[2023-02-21 18:45] LABS: A/G RATIO 0.7; ALANINE AMINOTRANSFERASE,ALT 22 U/L (12-36); ALBUMIN 2.9 g/dL (3.5-5.2); ALKALINE PHOSPHATASE 79 IU/L (56-112); AMYLASE 52 U/L (25-115); ASPARTATE AMNIOTRANSFERASE,AST 11 IU/L (5-25); BILIRUBIN TOTAL 0.5 mg/dL (0.1-1.3)
[2023-02-21 18:48] LABS: APPEARANCE,URINE CLEAR (CLEAR); BACTERIA,URINE FEW (NS); BILIRUBIN,URINE NEGATIVE (NEGATIVE); COLOR,URINE YELLOW (YELLOW); GLUCOSE,URINE NORMAL (NORMAL); KETONES,URINE 15 mg/dL (NEGATIVE); LEUKOCYTE ESTERASE,URINE NEGATIVE (NEGATIVE); NITRITE,URINE NEGATIVE (NEGATIVE); OCCULT BLOOD,URINE NEGATIVE (NEGATIVE); PROTEIN,URINE NEGATIVE (NEGATIVE); RBC,URINE NOT SEEN (0-5); SQUAMOUS EPITHELIAL CELLS,UR FEW (NS,R,O); UROBILINOGEN,URINE NORMAL (NEGATIVE); WBC,URINE 0-5 (0-5)
[2023-02-21] MEDS ORDERED: Acetaminophen/Codeine 300-30 MG Tab PO ONE (18:54)
[2023-02-21 21:02] VITALS: BP 116/68; PULSE 72
== END 2023-02-21 20:29 | disposition home or self-care (01) ==
LOC: FB.ED 17:32
DX: O21.0 Mild hyperemesis gravidarum (principal); O99.011 Anemia complicating pregnancy, first trimester; O99.891 Other specified diseases and conditions complicating pregnancy; R10.11 Right upper quadrant pain
CPT/HCPCS: 36415; 80053; 81001; 82150; 83690; 85025; 96361; 96374; 99284; 99284-25; A9270-GY; J2405; J7030

== ENCOUNTER 2024-05-21 16:27 | Emergency (ER) | payer MEDICAID ==
[2024-05-21] MEDS: Sodium Chloride 0.9% 1,000 ML IV ONE (17:05)
[2024-05-21] MEDS: Sodium Chloride 0.9% 10 ML Syringe FLUSH PRN (17:05)
[2024-05-21] MEDS: Ketorolac 30 MG/ML SDV IVPUSH ONE (17:10)
[2024-05-21] MEDS: Ondansetron 4 MG/2 ML SDV IVPUSH ONE (17:10)
[2024-05-21] MEDS: Morphine 2 MG/ML SYRINGE IVPUSH ONE (17:15)
[2024-05-21 17:16] LABS: BASOPHILS ABSOLUTE AUTO 0.1 x10-3/uL (0.0-0.1); BASOPHILS PERCENT AUTO 0.8 % (0.2-1.5); EOSINOPHILS ABSOLUTE AUTO 0.1 x10-3/uL (0.0-0.8); EOSINOPHILS PERCENT AUTO 1.7 % (0.6-8.1); HEMOGLOBIN 12.8 g/dL (11.4-15.5); LYMPHOCYTES ABSOLUTE AUTO 1.4 x10-3/uL (1.0-4.4); LYMPHOCYTES PERCENT AUTO 21.1 % (18.4-52.1); MEAN CORPUSCULAR HEMOGLOBIN 30.2 pg (23.9-33.9); MEAN CORPUSCULAR HGB CONC 34.5 g/dL (31.9-34.8); MEAN CORPUSCULAR VOLUME 87.6 fL (76.7-100.5); MEAN PLATELET VOLUME 7.9 fL (7.1-12.4); MONOCYTES ABSOLUTE AUTO 0.5 x10-3/uL (0.3-1.0); MONOCYTES PERCENT AUTO 7.1 % (4.4-15.7); NEUTROPHILS ABSOLUTE AUTO 4.7 x10-3/uL (1.5-6.3); NEUTROPHILS PERCENT AUTO 69.3 % (30.8-76.2); PLATELET COUNT,PLT 199 x10(3)uL (151-488); RED BLOOD CELL COUNT 4.23 x10(6)uL (3.60-5.20); WHITE BLOOD CELL COUNT,WBC 6.8 x10-3/uL (3.0-10.3)
[2024-05-21 17:23] LABS: BLOOD UREA NITROGEN,BUN 17 mg/dL (7-18); BUN/CREATININE RATIO 18.9 (9-20); CALCIUM 8.8 mg/dL (8.6-10.2); CARBON DIOXIDE,CO2 27 mmol/L (21-32); CHLORIDE,CL 104 mmol/L (100-110); CREATININE 0.9 mg/dL (0.55-1.02); ESTIMATED GFR 84 mL/min (>60); GLUCOSE RANDOM 92 mg/dL (80-116); POTASSIUM,K 3.6 mmol/L (3.5-5.3); SODIUM,NA 138 mmol/L (135-145)
[2024-05-21 17:29] LABS: ALANINE AMINOTRANSFERASE,ALT 21 U/L (12-36); ALBUMIN 3.9 g/dL (3.5-5.2); ALKALINE PHOSPHATASE 121 IU/L (56-112); ASPARTATE AMNIOTRANSFERASE,AST 12 IU/L (5-25); PROTEIN TOTAL,TP 7.9 g/dL (6.0-8.0)
[2024-05-21 17:40] LABS: BILIRUBIN,URINE NEGATIVE (NEGATIVE); GLUCOSE,URINE NORMAL (NORMAL); KETONES,URINE NEGATIVE (NEGATIVE); LEUKOCYTE ESTERASE,URINE LARGE (NEGATIVE); NITRITE,URINE POSITIVE (NEGATIVE); OCCULT BLOOD,URINE LARGE (NEGATIVE); PROTEIN,URINE 30 mg/dL (NEGATIVE); UROBILINOGEN,URINE NORMAL (NEGATIVE)
[2024-05-21 17:41] LABS: APPEARANCE,URINE SLIGHTLY CLOUDY (CLEAR); COLOR,URINE YELLOW (YELLOW)
[2024-05-21 17:51] LABS: BACTERIA,URINE MODERATE (NS); SQUAMOUS EPITHELIAL CELLS,UR FEW (NS,R,O); WBC,URINE 20-30 (0-5)
[2024-05-21] MEDS: Iopamidol 755 Mg/ML 100 ML Bottle IV SCH (18:07)
[2024-05-21] MEDS: cefTRIAXone 2 GM Vial IVPUSH ONE (18:45)
[2024-05-21 19:40] VITALS: BP 112/62; PULSE 85
== END 2024-05-21 19:40 | disposition home or self-care (01) ==
LOC: FB.ED 16:27
DX: N39.0 Urinary tract infection, site not specified (principal); E03.9 Hypothyroidism, unspecified; Z79.899 Other long term (current) drug therapy
CPT/HCPCS: 36415; 74177; 80053; 81001; 81025; 85025; 86140; 87086; 87088; 87186; 96361; 96374; 96375; 99284-25; J0696; J1885; J2405; J7030; Q9967